=== PATIENT | male | born 1970 | race Caucasian/White ===

== ENCOUNTER 2017-11-29 14:00 | Emergency (ER) | payer OTHER ==
[~2017-11-29] VITALS: Ht 175.3 cm; Wt 84.1 kg
[~2017-11-29 14:00] MED LIST: CLON2TAB11 PO; VICOT PO
[2017-11-29 16:39] VITALS: BP 141/88
[2017-11-29] MEDS ORDERED: SULFAMETHOX/TRIMETH DS 800-160 MG/TABLET PO ONE (16:45)
[2017-11-29] MEDS ORDERED: CEPHALEXIN MONOHYDRATE 500 MG CAPSULE PO ONE (16:45)
== END 2017-11-29 17:10 | disposition home or self-care (01) ==
LOC: EMS 14:02
DX: L03.211 Cellulitis of face (principal)
CPT/HCPCS: 99283

== ENCOUNTER 2018-06-10 18:44 | Emergency (ER) | payer OTHER ==
[~2018-06-10 18:44] MED LIST changes: -CLON2TAB11 PO
== END 2018-06-10 20:20 | disposition left against medical advice (07) ==
LOC: EMS 18:45
DX: Z76.0 Encounter for issue of repeat prescription (principal); Z53.21 Procedure and treatment not carried out due to patient leaving prior to being seen by health care provider

== ENCOUNTER 2018-06-14 16:48 | Emergency (ER) | payer OTHER ==
[2018-06-14] MEDS ORDERED: CLON1 PO (16:56)
== END 2018-06-14 19:00 | disposition left against medical advice (07) ==
LOC: EMS 16:49
DX: R07.9 Chest pain, unspecified (principal); M79.602 Pain in left arm; R20.2 Paresthesia of skin; F41.9 Anxiety disorder, unspecified
CPT/HCPCS: 93005